=== PATIENT | female | born 1960 | race Caucasian/White ===

== ENCOUNTER 2019-09-28 20:20 | Emergency (ER) | payer BC ==
[2019-09-28] MEDS ORDERED: Acetaminophen/HYDROcodone 325-10 MG Tab PO ONE (20:21)
[2019-09-28 21:52] VITALS: BP 135/71; PULSE 85
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
[2019-09-28] MEDS: Ondansetron 4 MG/2 ML SDV IVPUSH ONE (22:00)
[2019-09-28] MEDS: fentaNYL 100 MCG/2 ML SDV IVPUSH ONE (22:03)
[2019-09-28] MEDS: Sodium Chloride 0.9% 1,000 ML IV SCH (22:06)
[2019-09-28 22:11] LABS: CHLORIDE,CL 105 mmol/L (98-107); SODIUM,NA 142 mmol/L (136-145)
[2019-09-28] MEDS: Iopamidol 612 MG/ML 100 ML Bottle IVPUSH ONE (22:25)
--- NOTE | 2019-09-28 23:07 | CT ---
PROCEDURE INFORMATION: Exam: CT Chest With Contrast Exam date and time: 09/28/2019 10:45 PM Age: 58 years old Clinical indication: Other: Fall--right ribs, abd, hip pain; Other: Same; Additional info: Fell off horse TECHNIQUE: Imaging protocol: Computed tomography of the chest with intravenous contrast. Radiation optimization: All CT scans at this facility use at least one of these dose optimization techniques: automated exposure control; mA and/or kV adjustment per patient size (includes targeted exams where dose is matched to clinical indication); or iterative reconstruction. Contrast material: [id number]; Contrast volume: 100 ml; Contrast route: INTRAVENOUS (IV); COMPARISON: No relevant prior studies available. FINDINGS: Lungs: There are minor subpleural atelectatic densities in the dependent portions of the lungs. Pleural space: Unremarkable. No pneumothorax. No pleural effusion. Heart: Unremarkable. No cardiomegaly. No pericardial effusion. Aorta: Unremarkable. No aortic aneurysm. Lymph nodes: Unremarkable. No enlarged lymph nodes. Bones/joints: There are nondisplaced/minimally displaced fractures involving anterior right ribs 3 4 5. Soft tissues: Unremarkable. IMPRESSION: There are nondisplaced/minimally displaced fractures involving anterior right ribs 3 4 5. PROCEDURE INFORMATION: Exam: CT Abdomen And Pelvis With Contrast Exam date and time: 09/28/2019 10:45 PM Age: 58 years old Clinical indication: Other: Fall--right ribs, abd, hip pain; Other: Same; Additional info: Fell off horse TECHNIQUE: Imaging protocol: Computed tomography of the abdomen and pelvis with intravenous contrast. Radiation optimization: All CT scans at this facility use at least one of these dose optimization techniques: automated exposure control; mA and/or kV adjustment per patient size (includes targeted exams where dose is matched to clinical indication); or iterative reconstruction. Contrast material: [id number]; Contrast volume: 100 ml; Contrast route: INTRAVENOUS (IV); COMPARISON: No relevant prior studies available. FINDINGS: Liver: Normal. No mass. Gallbladder and bile ducts: Normal. No calcified stones. No ductal dilation. Pancreas: Normal. No ductal dilation. Spleen: Normal. No splenomegaly. Adrenals: Normal. No mass. Kidneys and ureters: There are multiple bilateral simple renal cysts. No follow-up is recommended. These these renal cysts measure up to 2.5 cm on the left in a predominantly peripelvic. The ureters are not dilated. The difficult to rule out some degree of collecting system dilatation with the multiple peripelvic cysts present. Delayed images could be obtained through the kidneys. Stomach and bowel: Mild diffuse diverticulosis is present in the colon. There is no evidence of colitis/diverticulitis. Appendix: No evidence of appendicitis. Intraperitoneal space: Unremarkable. No free air. No significant fluid collection. Vasculature: Unremarkable. No abdominal aortic aneurysm. Lymph nodes: Unremarkable. No enlarged lymph nodes. Bladder: Unremarkable as visualized. Reproductive: Unremarkable as visualized. Bones/joints: Nondisplaced fracture right transverse process L3. There is moderate disc space narrowing and endplate sclerosis and osteophyte formation identified throughout the lumbar segment. Moderate diffuse facet disease is most obvious at L4-L5 and L5-S1. Soft tissues: Unremarkable. IMPRESSION: 1. Nondisplaced transverse process fracture L3. 2. No other fracture seen in the abdomen or pelvis. 3. Multiple peripelvic cysts. 4. The ureters not dilated. Some element of collecting system dilatation would be difficult to rule out with the multiple peripelvic cysts present. Delayed images through the kidneys, proximally 1 hour following injection, could be considered. 5. There are multiple bilateral simple renal cysts. No follow-up is recommended. COMMENTS: Consistent with the [employer]'s Incidental Findings Committee white paper (J Am Serafin Radiol 2018): Any incidental renal lesion less than 1.0 cm or classified as too small to characterize, or any incidental cystic renal lesion characterized as simple-appearing, is likely benign. No follow-up imaging is recommended for these lesions per consensus recommendations based on imaging criteria.
[2019-09-29] MEDS: Acetaminophen/HYDROcodone 325-10 MG Tab ONE (00:35)
== END 2019-09-29 00:26 | disposition home or self-care (01) ==
LOC: DL.ED 20:20
DX: S22.41XA Multiple fractures of ribs, right side, initial encounter for closed fracture (principal); S32.039A Unspecified fracture of third lumbar vertebra, initial encounter for closed fracture; M25.551 Pain in right hip; J45.909 Unspecified asthma, uncomplicated; E03.9 Hypothyroidism, unspecified; Z88.5 Allergy status to narcotic agent; Z88.0 Allergy status to penicillin; Z79.899 Other long term (current) drug therapy; W55.12XA Struck by horse, initial encounter
CPT/HCPCS: 36415; 71260; 74177; 80053; 85025; 96374; 96375; 99284; A9270; J2405; J3010; J7030; Q9967

== ENCOUNTER 2021-02-23 05:13 | Day surgery (SDC) | payer BC ==
[2021-02-23] MEDS ORDERED: Midazolam 1 MG/ML 2 ML SDV IV ONE ×7 (05:14→06:43)
[2021-02-23] MEDS ORDERED: fentaNYL 100 MCG/2 ML SDV IV ONE ×4 (05:14→06:46)
[2021-02-23] MEDS ORDERED: fentaNYL 100 MCG/2 ML SDV ONE (05:25)
[2021-02-23] MEDS ORDERED: Midazolam 1 MG/ML 2 ML SDV ONE (05:25)
[2021-02-23] MEDS ORDERED: Dextrose 5%-0.45% NaCl 1,000 ML IV SCH (06:00)
--- NOTE | 2021-02-23 08:35 | OR ---
DATE: 02/23/2021 PROCEDURE: Total colonoscopy. INSTRUMENT USED: [id number] Olympus video colonoscope. PREMEDICATIONS: Fentanyl 100 mcg intravenous, Versed 4 mg intravenous. Nasal O2 cannula. The procedure was done under pulse oximetry, BP recording, and conveyor monitor. INDICATION: The patient with progressive constipation and high-risk family history for colon cancer. Colonoscopic examination is done for detection of any polypoid lesions and removal, endoscopic hemostasis therapy if needed. DESCRIPTION OF PROCEDURE: Initial rectal exam was unremarkable. Rigid anoscopy was normal. The colonoscope was passed with ease. Few scattered diverticula were noted in the distal left colon along with deformity. The scope was passed with ease up to the ileocecal area. Photographs were taken of the normal- appearing cecum, identified by double-bulged ileocecal folds. No bleeding was noted from any of the visualized areas at the commencement of the examination. The bowel preparation was found to be adequate, [place] scale 2 in right and left colon, 3 in transverse colon, total score 7. No stricture. No vascular ectasia. No large isolated ulcerations seen. No evidence of diffuse inflammatory bowel disease in the form of friability, contact bleeding, or ulcerations. No polyp or tumor mass identified. Second look of the right colon was done. Probing the proximal sides of folds and flexures using adequate distention and clearing up the stool material, withdrawal of the scope was made, cecum to rectum time over 9 minutes. No bleeding was noted from any of the visualized areas at the completion of examination. IMPRESSION: Diverticulosis. The patient tolerated the procedure well. [facility] /[id number]
[2021-02-23 10:00] VITALS: BP 117/57; PULSE 57
== END 2021-02-23 09:02 | disposition home or self-care (01) ==
LOC: DL.ENDO 05:13
PROVIDERS: ATTEND Internal Medicine Gastroenterology
DX: K57.30 Diverticulosis of large intestine without perforation or abscess without bleeding (principal); K59.00 Constipation, unspecified; E66.09 Other obesity due to excess calories; E78.5 Hyperlipidemia, unspecified; K21.9 Gastro-esophageal reflux disease without esophagitis; E03.9 Hypothyroidism, unspecified; Z01.812 Encounter for preprocedural laboratory examination; Z20.822 Contact with and (suspected) exposure to COVID-19; Z80.0 Family history of malignant neoplasm of digestive organs; Z98.890 Other specified postprocedural states; Z88.5 Allergy status to narcotic agent; Z88.0 Allergy status to penicillin; Z68.30 Body mass index [BMI] 30.0-30.9, adult
CPT/HCPCS: 45378; 87635; J2250; J3010; J7042; U0002